=== PATIENT | female | born 1980 | race Two or more races ===

== ENCOUNTER 2016-04-13 00:58 | Emergency (ER) | payer MEDICAID ==
[~2016-04-13] VITALS: Ht 157.5 cm; Wt 75.7 kg
[2016-04-13 01:34] LABS: Basophils # (auto) 0 uL; Basophils % (auto) 0.3 % (0.0-2.0); Eosinophils # (auto) 0.1 uL; Eosinophils % (auto) 0.5 % (0.0-7.0); Hematocrit 36.3 % (36.0-46.0); Hemoglobin 11.7 g/dL (12.2-16.2); Lymphocytes # (auto) 0.7 uL; Lymphocytes % (auto) 6.9 % (10.0-50.0); Mean Corpuscular Hemoglobin 27.1 pg (28.0-32.0); Mean Corpuscular Hgb Conc. 32.2 g/dL (32.0-36.0); Mean Platelet Volume 8.9 fL (7.4-10.4); Monocytes # (auto) 0.2 uL; Monocytes % (auto) 1.7 % (0.0-12.0); Neutrophils # (auto) 8.8 uL; Neutrophils % (auto) 90.6 % (37.0-80.0); Platelet Count (auto) 238 10^3/uL (140-450); Red Cell Distribution Width 15.4 % (11.6-16.0); White Blood Cell 9.8 10^3/uL (4.4-10.8)
[2016-04-13 01:53] LABS: Albumin 3.4 g/dL (3.4-5.0); BUN/Creatinine Ratio 17.6; Calcium 8.1 mg/dL (8.5-10.1); Potassium 3.5 mmol/L (3.5-5.1)
[2016-04-13 01:56] LABS: INR 1.07 (0.9-1.15); Partial Thromboplastin Time 25.4 sec (22.64-33.71); Total Protein 6.9 g/dL (6.4-8.2)
[2016-04-13 02:08] LABS: Urine Bilirubin Negative (Negative); Urine Color Yellow (Yellow); Urine Glucose Normal (Normal); Urine Ketone Negative (Negative); Urine Nitrite Negative (Negative); Urine RBC 71 /hpf (0 - 4); Urine Squamous Epithelial Cell FEW /hpf (<5); Urine Urobilinogen Normal (Negative)
[2016-04-13 02:09] LABS: Urine Blood 3+ /uL (Negative)
[2016-04-13] MEDS ORDERED: SODIUM CHLORIDE 0.9% 1,000 ML IVB ONE (07:50)
[2016-04-13] MEDS ORDERED: KETOROLAC TROMETH 30 MG/ML 1ML VIAL IV ONE (08:00)
[2016-04-13] MEDS ORDERED: METOCLOPRAMIDE HCL 5MG/ml INJ 2ml VIAL IV ONE (08:00)
[2016-04-13] MEDS ORDERED: PANTOPRAZOLE 40 MG TAB PO ONE (08:00)
[2016-04-13 10:10] VITALS: BP 112/62
== END 2016-04-13 11:00 | disposition home or self-care (01) ==
LOC: ER 01:01
DX: K21.9 Gastro-esophageal reflux disease without esophagitis (principal); J45.909 Unspecified asthma, uncomplicated; R07.9 Chest pain, unspecified
CPT/HCPCS: 36415; 76705; 80053; 81001; 82150; 83690; 84702; 85025; 85049; 85610; 85730; 93005; 96361; 96374; 96375; 99285; J1885; J2765; J7030